=== PATIENT | male | born 1975 ===

== ENCOUNTER 2022-10-17 16:14 | Emergency (ER) | payer BC, OTHER ==
[~2022-10-17] VITALS: Ht 175.2 cm; Wt 85.3 kg
[2022-10-17 16:31] LABS: BASO % 0.4 % (0.0-1.0); EOS # 0.3 10*3/uL (0.0-0.4); EOS % 3.7 % (1.0-4.0); HEMATOCRIT 46.5 % (42.0-52.0); LYMPH # 2.3 10*3/uL (1.3-4.4); LYMPH % 33.4 % (27.0-41.0); MEAN CELL VOLUME 87.4 fl (80.0-94.0); MEAN CORPUSCULAR HGB 30.5 pg (27.0-31.0); MEAN CORPUSCULAR HGB CONC 34.8 g/dl (33.0-37.0); MEAN PLATELET VOLUME 9.4 fl (9.6-12.3); MONO # 0.6 10*3/uL (0.1-1.0); MONO % 9.1 % (3.0-9.0); NEUT # 3.7 10*3/uL (2.3-7.9); NEUT % 53.1 % (47.0-73.0); PLATELET COUNT AUTOMATED 181 10*3/uL (130-400); RED BLOOD COUNT 5.32 10*6/uL (4.50-5.90); RED CELL DISTRI WIDTH 12.8 % (0-14.5)
[2022-10-17 16:41] LABS: ACT PARTIAL THROMBO TIME 25.6 SECONDS (20.0-32.1)
[2022-10-17 16:49] LABS: ALKALINE PHOSPHATASE 51 U/L (46-116); BUN 13 mg/dl (9-23); CHLORIDE 101 mmol/L (98-107); CREATININE 0.97 mg/dL (0.70-1.30); POTASSIUM 3.9 mmol/L (3.4-5.1); SGPT/ALT 25 U/L (10-49); SODIUM 137 mmol/L (136-145); TOTAL PROTEIN 7.1 gm/dL (6.0-8.0)
== END 2022-10-17 20:14 | disposition home or self-care (01) ==
LOC: ED 16:14
PROVIDERS: Emergency Medicine
DX: R07.89 Other chest pain (principal)